=== PATIENT | male | born 1955 | race Caucasian/White ===

== ENCOUNTER → 2021-06-06 | Outpatient (CLI) | payer BC ==
[2021-06-06 13:11] LABS: ALBUMIN 4.2 GM/DL (3.2-5.2); ALT/SGPT 81 U/L (12-78); BILIRUBIN,DIRECT 0.2 MG/DL (0.0-0.2); CHOLESTEROL LEVEL 232 MG/DL (<200); FERRITIN 217 NG/ML (26-388); HDL CHOLESTEROL 37 MG/DL (>40); IRON (FE) 213 UG/DL (65-175); LDL CHOLESTEROL 157 MG/DL (<100); NON-HDL-C 195 MG/DL; PERCENT SATURATION 52.7 % (19.7-50.0); TOTAL IRON BINDING CAPACITY 404 UG/DL (250-450); TOTAL PROTEIN 7.5 GM/DL (6.4-8.2); TRIGLYCERIDES LEVEL 190 MG/DL (<150)
[2021-06-06 13:29] LABS: HEPATITIS B SURFACE ANTIGEN NEGATIVE (NEGATIVE)
[2021-06-06 13:57] LABS: HEPATITIS C VIRUS ABY INDEX < 0.0 INDEX (<0.8)
[2021-06-10 06:08] LABS: ANTI-MITOCHONDRIAL ANTIBODY <20.0 Units (0.0-20.0); HEPATITIS A IgG TOTAL Negative (Negative); HEPATITIS B CORE ANTIBODY IGG Negative (Negative); IGASUB2 184.6 mg/dL (73.2-301.2); IGASUB3 32.8 mg/dL (13.4-97.9); IgA SERUM (part of Subclasses) 235 mg/dL (61-437); TISSUE TRANSGLUTAMINASE IgA <2 U/mL (0-3)
== END ==
LOC: M LAB 11:47
PROVIDERS: ATTEND Internal Medicine Gastroenterology
DX: K75.81 Nonalcoholic steatohepatitis (NASH) (principal)

== ENCOUNTER → 2021-10-21 | Outpatient (CLI) | payer BC, OTHER ==
--- NOTE | 2021-10-21 09:59 | REP ---
INDICATION: NONACLOHOLIC STEATPHEPATIS COMPARISON: None TECHNIQUE: Real time B-mode vega scale ultrasound examination using curved array transducer. Doppler evaluation of the hepatic vasculature performed. FINDINGS: Liver is diffusely hyperechoic with poor through transmission suggesting fatty infiltration. No obvious focal hepatic lesions are identified. Spleen, and visualized pancreas are normal in contour, size, echogenicity, and overall appearance. No focal splenic or pancreatic lesions are identified. Gallbladder is normal without gallstones, wall thickening, or pericholecystic fluid. No biliary ductal dilatation is appreciated and the common bile duct measures 3.1 mm in diameter. The bilateral kidneys are normal in reniform shape without hydronephrosis or obvious abnormality. Right kidney measures 13.9 x 5.8 x 5.6 cm. Left kidney measures 12.8 x 6.1 x 6.6 cm with 2.8 cm upper pole cyst. Visualized abdominal aorta appears normal. No obvious ascites. Doppler interrogation of the hepatic vasculature demonstrates normal flow direction, wave patterns and velocities. IMPRESSION: Essentially normal age-appropriate complete abdominal ultrasound. <Electronically signed by Pascual Guerra > 10/21/21 0960
== END ==
LOC: M RAD 09:04
PROVIDERS: ATTEND Internal Medicine Gastroenterology
DX: K75.81 Nonalcoholic steatohepatitis (NASH) (principal); N28.1 Cyst of kidney, acquired

== ENCOUNTER → 2022-02-25 | Outpatient (CLI) | payer BC, OTHER ==
[2022-02-25 07:42] LABS: PERCENT SATURATION 59.2 % (19.7-50.0)
== END ==
LOC: M LAB 06:51
PROVIDERS: ATTEND Internal Medicine Gastroenterology
DX: R94.5 Abnormal results of liver function studies (principal); K75.81 Nonalcoholic steatohepatitis (NASH); K74.60 Unspecified cirrhosis of liver

== ENCOUNTER → 2022-12-01 | Outpatient (CLI) | payer BC, OTHER | LOC: M WHC 07:16 | PROVIDERS: ATTEND Internal Medicine Gastroenterology | DX: K75.81 Nonalcoholic steatohepatitis (NASH) (principal) ==

== ENCOUNTER 2023-09-30 09:54 | Day surgery (SDC) | payer BC, OTHER ==
[~2023-09-30] VITALS: Ht 182.9 cm; Wt 130.2 kg
[~2023-09-30 09:54] MED LIST: FLUT1BLS8; FOLI1TAB11 PO; INDO50CA91; LOSA50TA28 PO; META28.32 PO; NS 1,000 ML IV ONE; ROSU10TA6 PO; TEST75GE
[2023-09-30] MEDS ORDERED: propofoL 200 MG/20 ML VIAL As Ordered ONE ×2 (12:31→12:47)
[2023-09-30] MEDS ORDERED: LIDOCAINE 2% 100MG/5ML SDV (FOR ANES.) As Ordered ONE (12:31)
[2023-09-30] MEDS ORDERED: fentaNYL 100 MCG/2 ML INJECTION As Ordered ONE (12:31)
[2023-09-30 13:40] VITALS: BP 139/74; TEMP 96.8; O2SAT 96
== END 2023-09-30 13:40 | disposition home or self-care (01) ==
LOC: M OPP 09:54
PROVIDERS: ATTEND Internal Medicine Gastroenterology
DX: Z12.11 Encounter for screening for malignant neoplasm of colon (principal); Z86.010 Personal history of colon polyps; D12.6 Benign neoplasm of colon, unspecified; K57.30 Diverticulosis of large intestine without perforation or abscess without bleeding; K64.4 Residual hemorrhoidal skin tags; K64.8 Other hemorrhoids; K74.60 Unspecified cirrhosis of liver; I85.10 Secondary esophageal varices without bleeding; K31.89 Other diseases of stomach and duodenum; Z79.02 Long term (current) use of antithrombotics/antiplatelets; Z79.51 Long term (current) use of inhaled steroids; Z79.52 Long term (current) use of systemic steroids; Z79.82 Long term (current) use of aspirin; Z79.890 Hormone replacement therapy; Z79.899 Other long term (current) drug therapy
CPT/HCPCS: 43239; 45385; 88305; J3010

== ENCOUNTER → 2025-05-18 | Outpatient (CLI) | payer BC ==
[~2025-05-18] MED LIST changes: -NS 1,000 ML IV ONE; -ROSU10TA6 PO; +ROSU10TA61 PO
== END ==
LOC: M RAD 09:24
PROVIDERS: ATTEND Physician Assistant
DX: K74.60 Unspecified cirrhosis of liver (principal); K76.0 Fatty (change of) liver, not elsewhere classified